=== PATIENT | male | born 1975 | race Asian ===

== ENCOUNTER → 2021-06-10 | Outpatient (CLI) | payer OTHER | LOC: EXRD 12:53 | DX: M79.605 Pain in left leg (principal) | CPT/HCPCS: 93971 ==

== ENCOUNTER → 2021-06-16 | Outpatient (CLI) | payer OTHER | LOC: HEART CORB 13:15 | DX: R07.2 Precordial pain (principal) ==

== ENCOUNTER → 2022-01-19 | Outpatient (CLI) | payer OTHER | LOC: HEART CORB 12:34 | DX: R07.9 Chest pain, unspecified (principal) ==